=== PATIENT | female | born 1960 | race Caucasian/White ===

== ENCOUNTER 2021-11-19 11:58 | Emergency (ER) | payer BC, SELFPAY ==
[2021-11-19 12:01] VITALS: BP 178/101; PULSE 78; RESP 20; TEMP 36.3; O2SAT 100
[2021-11-19 14:00] VITALS: BP 189/131; PULSE 81; RESP 18; TEMP 37.2; O2SAT 99
== END 2021-11-19 17:22 | disposition left against medical advice (07) ==
LOC: ANHED 12:09
PROVIDERS: PCP Physician Assistant
DX: R53.1 Weakness (principal)
CPT/HCPCS: 99199

== ENCOUNTER 2021-11-27 09:54 | Outpatient (CLI) | payer BC, SELFPAY ==
--- NOTE | ~2021-11-27 | CT_ITS ---
EXAMINATION: CT brain wo con DATE: 11/27/2021 10:18 INDICATION: Cerebral infarction presenting with right-sided weakness and numbness, dizziness and lack of coordination TECHNIQUE: Computed tomography (CT) of the head was performed without intravenous contrast. Sagittal and coronal reconstructions were performed. The mA was adjusted according to patient size. Iterative reconstruction technique was employed. The dose-length product was 605.33 mGy-cm. COMPARISON: None FINDINGS: No acute intracranial hemorrhage, acute infarction or abnormal extra axial fluid collection. There is mild scattered white matter hypoattenuation consistent with chronic small vessel ischemic disease. V entricles are normal and symmetric. No mass/mass effect. The orbits, paranasal sinuses and mastoid ai r cells are normal. IMPRESSION: 1. Mild scattered white matter hypoattenuation consistent with chronic small vessel ischemic disease. No acute intracranial process. Reviewed, dictated and finalized at location A. [employer] IMPRESSION: 1. Mild scattered white matter hypoattenuation consistent with chronic small ve ssel ischemic disease. No acute intracranial process.
== END 2021-11-27 09:55 | disposition home or self-care (01) ==
LOC: ANHIMG 09:58
PROVIDERS: PCP Physician Assistant; Visit Provider Physician Assistant
DX: I63.9 Cerebral infarction, unspecified (principal)
CPT/HCPCS: 70450

== ENCOUNTER 2021-11-29 12:10 | Outpatient (CLI) | payer BC, SELFPAY ==
--- NOTE | 2021-11-29 12:17 | ECG_ITS ---
Measurements Intervals [place] Rate: 69 P: 50 DE: 174 QRS: 17 QRSD: 115 T: 70 QT: 406 QTc: 436 Interpretive Statements SINUS RHYTHM INCOMPLETE RIGHT BUNDLE BRANCH BLOCK BORDERLINE ST-T WAVE ABNORMALITY- HIGH LATERAL LEADS BASELINE ARTIFACT- I, III BORDERLINE ECG Electronically Signed On 11-29-2021 12:47:53 TOW TRUCK DISPATCHER by Josh Damon D.O.
== END 2021-11-29 12:11 | disposition home or self-care (01) ==
PROVIDERS: PCP Physician Assistant; Visit Provider Physician Assistant
DX: I10 Essential (primary) hypertension (principal); I45.10 Unspecified right bundle-branch block
CPT/HCPCS: 93005

== ENCOUNTER 2021-12-09 15:16 | Outpatient (CLI) | payer BC, SELFPAY ==
--- NOTE | ~2021-12-09 | MR_ITS ---
EXAMINATION: MR brain/brain stem wo con DATE: 12/09/2021 16:10 INDICATION: Hemiplegia, unspecified affecting unspecified side. TECHNIQUE: Magnetic resonance imaging (MRI) of the brain and brainstem was performed without intraven ous contrast. Sequences included sagittal and axial T1-weighted FSE, axial diffusion-weighted FS EPI, axial T2*-weighted GRE, axial T2-weighted FLAIR Propeller, and axial T2-weighted Propeller. Apparent diffusion coefficient (ADC) maps were created. COMPARISON: Head CT 11/27/2021 FINDINGS: There are scattered areas of nonspecific increased T2-weighted signal intensity in the cere bral white matter and mariel. There is no intracranial hemorrhage, acute infarction, or abnormal intrac ranial mass lesion. The ventricles are normal in size. There is mild mucosal thickening in the parana cain sinuses. The orbits are normal. The mastoid air cells are normal. IMPRESSION: 1. Mild nonspecific cerebral white matter disease and pontine disease, which likely represents chroni c small vessel ischemic disease. Reviewed, dictated and finalized at location A. [employer] IMPRESSION: 1. Mild nonspecific cerebral white matter disease and pontine disease, which bob billy represents chronic small vessel ischemic disease.
== END 2021-12-09 15:17 | disposition home or self-care (01) ==
LOC: ANHIMG 15:20
PROVIDERS: PCP Physician Assistant; Visit Provider Physician Assistant
DX: G81.90 Hemiplegia, unspecified affecting unspecified side (principal); R90.82 White matter disease, unspecified
CPT/HCPCS: 70551

== ENCOUNTER 2022-06-18 12:17 | Outpatient (RCR) | payer BC, SELFPAY ==
[2022-06-18 13:02] VITALS: BP 140/76; PULSE 72; RESP 18; TEMP 36.6; O2SAT 99
[2022-06-18] MEDS: FAMOTIDINE 20 MG TABLET PO (13:06)
[2022-06-18] MEDS: diphenhydrAMINE HCl CAP 25 MG CAPSULE PO (13:06)
[2022-06-18] MEDS: ACETAMINOPHEN 325 MG TABLET 650 MG PO (13:07)
[2022-06-18] MEDS: BEBTELOVIMAB 175 MG/2 ML VIAL IV PUSH (13:26)
[2022-06-18 14:15] VITALS: BP 164/84; PULSE 68; O2SAT 98
== END 2022-06-18 16:00 ==
LOC: AMCINF 12:17
PROVIDERS: PCP Physician Assistant; Visit Provider Internal Medicine Hematology & Oncology
DX: U07.1 COVID-19 (principal)
CPT/HCPCS: A9270; M0222; Q0222

== ENCOUNTER 2025-02-06 15:10 | Outpatient (CLI) | payer MEDICARE, SELFPAY ==
--- NOTE | ~2025-02-06 | XR_ITS ---
EXAMINATION: XR femur LT min 2V DATE: 02/06/2025 15:39 INDICATION: Left lower limb pain TECHNIQUE: Overlapping proximal and distal, AP and lateral views of the left femur were obtained. COMPARISON: None FINDINGS: Alignment is normal. No fracture. Mild osteoarthritis at the left hip. There is at least mild osteoa rthritis in the medial compartment of the left knee although severity of joint space narrowing can be underestimated on nonweightbearing imaging. No knee joint effusion. Soft tissues are unremarkable. IMPRESSION: 1. Mild osteoarthritis at the left hip and at the medial compartment of the left knee. Reviewed, dictated and finalized at location B. IMPRESSION: 1. Mild osteoarthritis at the left hip and at the medial compartment of the lef t knee.
--- NOTE | ~2025-02-06 | XR_ITS ---
XR hip LT min 2V Ordering provider: Jono Feldman DO History: . M25.559 - PAIN FOR 3-4 MONTHS, NKI . Comparison: None. FINDINGS: BONES: No acute fracture or dislocation. HIP JOINT SPACES: Severe narrowing of the joint space in the left hip. PUBIC SYMPHYSIS: Normal. SOFT TISSUES: Normal. IMPRESSION: No acute osseous abnormality pelvis and left hip. Severe left hip osteoarthritic changes. Reviewed, dictated and finalized at location A.
--- OUTSIDE RECORDS SUMMARY | 2025-02-06 17:39 | XMS_ITS | Clinical Summary ---
Author Organization [facility] Address [address] [place] [address] Care Team Providers Care Tamale Machine Feeder Name Role Phone Kirt Molina MD Primary Care Provider [phone] Allergies No known active allergies Medications HYDROcodone-acet aminophen (NORCO) 5-325 MG tabletIndication s:Acute Pain < 3 Day Supply Take 1 tablet by mouth every 4 (four) hours. Indications : Acute Pain < 3 Day Supply 12 tablet 09/10/2022 Active Social History Tobacco Use Types Packs/Day Years Used Date Smoking Tobacco: Never Smokeless Tobacco: Never Alcohol Use Standard Drinks/Week Comments Never 0 (1 standard drink = 0.6 oz pur e alcohol) Comments No Sex and Gender Information Value Date Recorded Sex Assigned at Not on file Legal Sex Female 11:34 AM CDT Gender Identity Not on file Sexual Orientation Not on file Last Filed Vital Signs Vital Sign Reading Time Taken Comments Blood Pressure 181/100 09/10/2022 3:31 PM CDT Pulse 90 09/10/2022 11:49 AM CDT Temperature 36.7 C (98 F) 09/10/2022 11:49 AM CDT Respiratory Rate 20 09/10/2022 11:4 9 AM CDT Oxygen Saturation 98% 09/10/2022 3:31 PM CDT Inhaled Oxygen Concentration - - Weight 121.9 kg (268 lb 11.9 oz) 2021 11:49 AM CDT Height 157.5 cm (5' 2 ) 09/10/2022 11:4 9 AM CDT Body Mass Index 49.15 09/10/2022 11:49 AM CDT Plan of Treatment Health Maintenance Due Date Last Done Comments Colorectal Cancer Screening Colonoscopy (10 Years) 1958 Hepatitis C 1976 DTaP, Tdap and Td Vaccines ( 1 - Tdap) 1977 Mammogram Screening 1998 Zoster Vaccines (1 of 2) 2008 RSV Immunization or 60+ Years (1 - Risk 60-74 years 1-dose series) 2018 Dexa Scan (General) 2023 Pneumococcal Vaccine: 65+ Years (1 of 1 - PCV) 2023 COVID-19 Vaccine (3 - 2023-2 5 season) 2024 07/12/2021, 06/21/2021 Influenza Adult (#1) 2024 Meningococcal B Vaccine Aged Out No l onger eligible based on patient's age to complete this topic Meningococcal Vaccine Aged Out No chloe sera eligible based on patient's age to complete this topic RSV Immunizations Under 20 Months Aged Out No longer eligible b ased on patient's age to complete this topic [place] [address] [place] [address] Care Teams Tamale Machine Feeder Relationship Specialty Start Date End Date Kirt Molina MD [address] [place] [address] PCP - General INTERNAL MEDICINE 09/10/22
== END 2025-02-06 15:11 | disposition home or self-care (01) ==
PROVIDERS: PCP Internal Medicine; Visit Provider Internal Medicine
DX: M17.12 Unilateral primary osteoarthritis, left knee (principal); M16.12 Unilateral primary osteoarthritis, left hip
CPT/HCPCS: 73502; 73552

== ENCOUNTER 2025-06-27 14:21 | Outpatient (CLI) | payer MEDICARE, SELFPAY ==
--- NOTE | ~2025-06-27 | US_ITS ---
EXAMINATION: US pelvic complete INDICATION: Pelvic and perineal pain Comparison:No prior studies for comparison. TECHNIQUE: Multiple transabdominal and endovaginal sonographic images of the pelvis performed. FINDINGS: The uterus is surgically absent. There is fluid anterior to the bladder within the left sku ll shape measuring 6.8 x 0.6 x 1.6 cm, nonspecific. The right ovary measures 1.9 x 0.7 x 1.3 cm and the left ovary measures 1.7 x 0.8 x 0.8 cm. There ar e small follicles in each ovary. Normal doppler signal in both ovaries. There is no free fluid in the pelvis. There are no abnormal masses seen on either side. IMPRESSION: 1. Elliptical fluid collection anterior to the bladder in the deep soft tissues measuring 6.8 x 0.6 x 1.6 cm, nonspecific. Posttraumatic, although infection is not excluded. Consider correlation with co ntrast-enhanced CT pelvis. Reviewed, dictated and finalized at location A. IMPRESSION: 1. Elliptical fluid collection anterior to the bladder in the deep soft tissues measuring 6.8 x 0.6 x 1.6 cm, nonspecific. Posttraumatic, although infection i s not excluded. Consider correlation with contrast-enhanced CT pelvis.
--- OUTSIDE RECORDS SUMMARY | 2025-06-27 14:47 | XMS_ITS | Patient Health Record ---
Author Organization [facility] Address [address] [facility] [address] [place] [address] Care Team Providers Care Bull Ladle Tender Name Role Phone JAYANT DAVENPORT Unavailable [phone] Reason For Referral No Information Plan Of Treatment No Information Insurance Providers Payer Name Payer Address Payer Phone Subscriber Number Group Number Insured Name Patient Relationship to Insured Coverage Start Date Coverage End Date [facility] [address] [place], [place] [id number] Sayra Bojorquez Self - patient is the insured 3
== END 2025-06-27 14:22 | disposition home or self-care (01) ==
PROVIDERS: PCP Internal Medicine; Visit Provider Internal Medicine
DX: R10.2 Pelvic and perineal pain (principal)
CPT/HCPCS: 76856

== ENCOUNTER 2025-06-27 15:28 | Emergency (ER) | payer MEDICARE, SELFPAY ==
--- NOTE | ~2025-06-27 | XR_ITS ---
CHEST RADIOGRAPH, PA AND LATERAL CLINICAL HISTORY: dizziness . COMPARISON: None available TECHNIQUE: PA and lateral views of the chest. FINDINGS The cardiomediastinal silhouette is markedly enlarged, specifically demonstrating left atrial enlarge ment. The lungs are clear. IMPRESSION: Significant cardiomegaly, without focal infiltrate or effusion. Reviewed, dictated and finalized at location A.
--- NOTE | ~2025-06-27 | CT_ITS ---
History: Vertigo PROCEDURE: CT head without contrast. COMPARISON: 11/27/2021 TECHNIQUE: Axial imaging of the head performed from the skull base to the vertex without IV contrast. Sagittal a nd coronal reformations obtained. DLP: 605 mGy-cm FINDINGS: The ventricles are enlarged. The dilatation of the ventricles is proportional to the degree of sulcal prominence, not uncommon in the senescent brain. Decreased attenuation is identified within the periventricular white matter, likely secondary to micr ovascular ischemic disease, in a patient of this age. There is no mass, mass effect or midline shift. There is no abnormal extra-axial fluid collection or intracranial hemorrhage. Visualized paranasal sinuses are clear. The mastoid air cells are well aerated. No acute displaced fractures within the overlying cranium. Impression: No acute intracranial hemorrhage or suspicious mass effect. Reviewed, dictated and finalized at location A. Impression: No acute intracranial hemorrhage or suspicious mass effect.
[2025-06-27 15:29] VITALS: BP 190/87; PULSE 100; RESP 16; TEMP 37; O2SAT 98
--- OUTSIDE RECORDS SUMMARY | 2025-06-27 15:41 | XMS_ITS | Clinical Summary ---
Author Organization [facility] Address [address] [place] [address] Care Team Providers Care Tube Making Machine Operator Name Role Phone Kirt Molina MD Primary Care Provider [phone] Allergies No known active allergies Medications HYDROcodone-acet [...] 11:49 AM CDT Height 157.5 cm (5' 2) 09/10/2022 11:4 9 AM CDT Body Mass Index 49.15 09/10/2022 11:49 AM CDT Plan of Treatment Health Maintenance Due Date Last Done Comments Colorectal Cancer Screening Colonoscopy (10 Years) 1958 Hepatitis C 1976 DTaP, Tdap and Td Vaccines ( 1 - Tdap) 1977 Mammogram Screening 1998 Pneumococcal Vaccine: 50+ Years (1 of 1 - PCV) 2008 Zoster Vaccines (1 of 2) 2008 RSV Immunization or 60+ Years (1 - Risk 60-74 years 1-dose series) 2018 Dexa Scan (General) 2023 COVID-19 Vaccine (3 - 2023-2 5 season) 2024 07/12/2021, 06/21/2021 Meningococcal B Vaccine Aged Out No l onger eligible based on patient's age to complete this topic Meningococcal Vaccine Aged Out No chloe sera eligible based on patient's age to complete this topic RSV Immunizations Under 20 Months Aged Out No longer eligible b ased on patient's age to complete this topic [place] [address] Care Teams Tube Making Machine Operator Relationship Specialty Start Date End Date Kirt Molina MD [address] [place], [place] [id number] PCP - General INTERNAL MEDICINE 09/10/22
[2025-06-27 18:22] VITALS: BP 192/89; PULSE 69; TEMP 36.3; O2SAT 98
--- NOTE | 2025-06-27 18:23 | ED_ITS ---
HPI - Recheck/Abnormal Lab/Rx General Chief Complaint: Recheck/Abnormal Lab/Rx <Daria Cintron PA-C - Last Filed: 06/29/25 17:19> Stated Complaint: Dizzy, HTN <Daria Cintron PA-C - Last Filed: 06/29/25 17:19> Time Seen by Provider: 06/27/25 18:23 <Daria Cintron PA-C - Last Filed: 06/29/25 17:19> Focused HPI: This is a 65 year old female that presents to the ER for dizziness. Ongoing since this morning. Reports she was in radiology here for an US and her blood pressure was noted to be quite elevated. Sent to the ER for further evaluation. Reports known history of hypertension. She did take her blood pressure medication today. GENERAL: Well-appearing, well-nourished, and in no acute distress. HEAD: Normocephalic, atraumatic. CHEST: Clear to auscultation. ?No respiratory distress. HEART: Regular rate and rhythm.? NEURO: ?Alert and oriented x3. Patient screened in triage and initial orders placed.? ?Additional care and disposition to be based upon?diagnostic testing and treatment. <Daria Cintron PA-C - Last Filed: 06/29/25 17:19> History of Present Illness HPI narrative: 65-year-old female present to the emergency department for evaluation for high blood pressure and dizziness. Patient states this morning when she bent over to feed her dogs she had onset of dizziness. Patient describes this as a movement and swimming sensation. Patient states it was tolerable until she went to have her outpatient ultrasound and when she laid down the table it symptoms significantly worsened. Patient does have history of high blood pressure that is poorly controlled. Patient states her pressure typically runs in the 160s systolic range but she states that is not uncommon for her to have a blood pressure of 200 systolic. Patient is having close follow-up with her primary care physician to trying get her blood pressure controlled. Patient did take her morning blood pressure medications at approximately noon which is her typical time. Patient takes her nighttime medications at 11:00 p.m.. At time of evaluation patient does describe a spinning sensation that is improved with closing her eyes. Patient denies any focal numbness or weakness. <Marcell Guy MD - Last Filed: 06/27/25 21:33> Related Data Home Medications: Home Medications ?Medication ?Instructions ?Recorded ?Confirmed ?Last Taken ?Type ascorbic acid (vitamin C) 500 mg 1 gm PO DAILY 04/11/20 06/29/25 Unknown History tablet (Vitamin C) cholecalciferol (vitamin D3) 125 125 mcg PO DAILY 04/11/20 06/29/25 Unknown History mcg (5,000 unit) capsule docosahexaenoic acid 200 mg 200 mg PO .qd 04/11/20 06/29/25 Unknown History capsule (Algal [place]-3 DHA) naproxen sodium 220 mg capsule 220 mg PO Q12H 04/11/20 06/29/25 Unknown History (Aleve) vitamin E (dl, acetate) 450 mg 1,200 unit PO DAILY 04/11/20 06/29/25 Unknown History (1,000 unit) capsule <Daria Cintron PA-C - Last Filed: 06/29/25 17:19> Allergies/Adverse Reactions: Allergies Allergy/AdvReac Type Severity Reaction Status Date / Time aspartame Allergy Mild Unknown Verified 06/29/25 12:22 avocado Allergy Mild Unknown Verified 06/29/25 12:22 blueberry Allergy Mild Unknown Verified 06/29/25 12:22 carrot Allergy Mild Unknown Verified 06/29/25 12:22 cucumber Allergy Mild Unknown Verified 06/29/25 12:22 lemon Allergy Mild Unknown Verified 06/29/25 12:22 milk Allergy Mild Unknown Verified 06/29/25 12:22 oats Allergy Mild Unknown Verified 06/29/25 12:22 orange Allergy Mild Unknown Verified 06/29/25 12:22 peas Allergy Mild Unknown Verified 06/29/25 12:22 petrolatum,white (From Allergy Mild boils Verified 06/29/25 12:22 Petroleum Jelly) safflower oil Allergy Mild Unknown Verified 06/29/25 12:22 salmon oil Allergy Mild Unknown Verified 06/29/25 12:22 strawberry Allergy Mild Unknown Verified 06/29/25 12:22 Yeast Allergy Mild Unknown Verified 06/29/25 12:22 rand oneil Allergy Mild Unknown Uncoded 06/29/25 12:22 MULTIPLE FOOD ALLERGIESX 15 Allergy Unknown unknown Uncoded 06/29/25 12:22 <Daria Cintron PA-C - Last Filed: 06/29/25 17:19> Review of Systems 2 Review of Systems: All systems reviewed & are unremarkable except as noted in HPI and below <Marcell Guy MD - Last Filed: 06/27/25 21:33> PMFSH Past Medical History Medical History: Medical History (Reviewed 05/23/25 @ 13:57 by Michelle Alcaraz [facility]) Broken ankle (~1984) <Daria Cintron PA-C - Last Filed: 06/29/25 17:19> Surgical History Surgical History: Surgical History (Reviewed 05/23/25 @ 13:57 by Michelle Alcaraz [facility]) H/O: hysterectomy (~1994) <Daria Cintron PA-C - Last Filed: 06/29/25 17:19> Family History Family History: Family History (Reviewed 05/23/25 @ 13:56 by Michelle Alcaraz [facility]) Father Hypertension Gout Mother Lung cancer Sibling No problems noted. <Daria Cintron PA-C - Last Filed: 06/29/25 17:19> Social History Social History: Social History (Reviewed 05/23/25 @ 13:56 by Michelle Alcaraz [facility]) Smoking status: Never smoker Second hand tobacco smoke exposure: No Alcohol intake: current Substance use: current Substance use type: other Other substance usage details: THC gummies Do You Feel Safe in your Home?: Yes Lack of Transportation: No Lack of Food: Never True Current Housing: I Have Housing Concerned About Future Housing: No Difficulty Paying Gas/Electric Bills: No Difficulty Paying for Meds: YES Currently Unemployed: No Education: Bachelor's Degree Difficulty w/ Childcare or Family Care: No Living arrangements: alone Occupation/Education: occupation Additional occupation/education comments: [employer] <Daria Cintron PA-C - Last Filed: 06/29/25 17:19> Exam 2 Narrative: APPEARANCE: Well appearing, no pain, no distress, well-nourished. HEAD: normocephalic, atraumatic. EYES: PERRLA/EOMI, conjunctivae clear. NOSE: Normal no drainage EARS:TMS clear with good light reflex. THROAT: Pharynx clear, no exudate. NECK: Supple. No adenopathy, no masses. RESPIRATORY: Airway patent, respirations nonlabored. Clear to auscultation bilaterally, no rales, rhonchi, wheezing. CARDIOVASCULAR: Regular rate and rhythm without murmurs rubs or gallops. ABDOMINAL: Soft, nontender, nondistended, normal bowel sounds MUSCULOSKELETAL: Moves all extremities. Strength/ROM intact, No edema, No calf tenderness. NEURO: Alert. Cranial nerves II through XII intact. Good gait. Good coordination SKIN: Warm, dry. Normal Color <Marcell Guy MD - Last Filed: 06/27/25 21:33> Course Vital Signs Vital signs: Vital Signs Temperature 98.6 F 06/27/25 15:29 Pulse Rate 100 06/27/25 15:29 Respiratory Rate 16 06/27/25 15:29 Blood Pressure 190/87 H 06/27/25 15:29 Pulse Oximetry 98 06/27/25 15:29 Temperature 97.3 F L 06/27/25 18:22 Pulse Rate 79 06/27/25 20:09 Respiratory Rate 18 06/27/25 20:09 Blood Pressure 143/69 H 06/27/25 20:09 Pulse Oximetry 100 06/27/25 20:09 <Daria Cintron PA-C - Last Filed: 06/29/25 17:19> Vital Signs Temperature 98.6 F 06/27/25 15:29 Pulse Rate 100 06/27/25 15:29 Respiratory Rate 16 06/27/25 15:29 Blood Pressure 190/87 H 06/27/25 15:29 Pulse Oximetry 98 06/27/25 15:29 Temperature 97.3 F L 06/27/25 18:22 Pulse Rate 79 06/27/25 20:09 Respiratory Rate 18 06/27/25 20:09 Blood Pressure 143/69 H 06/27/25 20:09 Pulse Oximetry 100 06/27/25 20:09 <Marcell Guy MD - Last Filed: 06/27/25 21:33> MDM - Recheck/Abnormal Lab/Rx MDM Narrative Medical decision making narrative: 65-year-old female presents to the emergency department for evaluation for vertigo. Patient's dizziness and vertigo does improve when she closed her eyes. Patient has a normal neuro exam. Patient was treated with meclizine and on re- evaluation patient states she does feel significantly improved. Patient reports her blood pressure typically does run in the 160s range and states she does often go to to 0s. Patient was treated with 10 mg of hydralazine and patient's blood pressure is 165. Head CT was negative for acute intracranial abnormality. Chest x-ray shows no acute cardiopulmonary abnormality EKG shows no evidence of acute STEMI. Patient does prefer to be discharged home. Patient will be provided meclizine for home. All questions concerns were addressed. <Marcell Guy MD - Last Filed: 06/27/25 21:33> Differential Diagnosis Differential diagnosis: Likely other (Hypertension, hypertensive crisis, subdural hematoma, subarachnoid hemorrhage, vertigo) <Marcell Guy MD - Last Filed: 06/27/25 21:33> Lab Data Attestation: I reviewed the patient's lab results. <Marcell Guy MD - Last Filed: 06/27/25 21:33> Result diagrams: 06/27/25 19:16 06/27/25 19:16 <Daria Cintron PA-C - Last Filed: 06/29/25 17:19> Labs: Lab Results 06/27/25 06/27/25 Range/Units 19:04 19:16 WBC 4.7 (4.5-10.0) K/mm3 RBC 4.75 (4.2-5.4) M/mm3 Hgb 13.8 (12.0-15.0) g/dL Hct 41.5 (37.0-47.0) % MCV 87.4 (80-100) fl MCH 29.1 (26-34) pg MCHC 33.3 (32-36) g/dl RDW 13.1 (11.5-14.5) % Plt Count 193 (150-375) k/mm3 MPV 9.6 (7.4-10.4) fl Immature Gran % (Auto) 0.2 (0-0.5) % Neut % (Auto) 61.4 (45.5-73.1) % Lymph % (Auto) 25.1 (18.3-44.2) % [place] % (Auto) 9.5 H (2.6-8.5) % Eos % (Auto) 2.5 (0-4.4) % Baso % (Auto) 1.3 H (0.2-1.2) % Lymph # (Auto) 1.19 (0.9-3.2) K/mm3 [place] # (Auto) 0.5 (0.1-0.6) K/mm3 Eos # (Auto) 0.1 (0-0.3) K/mm3 Baso # (Auto) 0.1 (0.0-0.1) K/mm3 Abs Immat Gran (auto) 0.01 (0.00-0.031) K/mm3 Absolute Neuts (auto) 2.9 (1.3-6.7) K/mm3 Absolute Nucleated RBC 0.000 (0.0-0.012) K/mm3 Nucleated RBC % 0.0 (0.0-0.2) % Sodium 139 (137-145) mmol/L Potassium 3.8 (3.4-5.0) mmol/L Chloride 104 (98-107) mmol/L Carbon Dioxide 27 (22-30) mmol/L Anion Gap 8 (4-12) mmol/L BUN 16 (7-17) mg/dL Creatinine 0.71 (0.7-1.0) mg/dL Estim Creat Clear Calc 79 ml/min Estimated GFR > 60 (59 - ) Glucose 94 (65-110) mg/dL Calcium 9.6 (8.4-10.2) mg/dL Total Bilirubin 0.6 (0.2-1.3) mg/dL AST 30 (14-36) U/L ALT 22 (6-35) U/L Alkaline Phosphatase 69 (38-126) U/L Total Protein 7.7 (6.3-8.2) g/dL Albumin 4.5 (3.5-5.1) g/dL Urine Color Yellow (Yellow) Urine Appearance Clear (Clear) Urine pH 7.5 (5.0-9.0) Ur Specific [place] 1.005 (1.001-1.035) Urine Protein Negative (Negative) mg/dL Urine Glucose (UA) Negative (Negative) mg/dL Urine Ketones Negative (Negative) mg/dL Ur Blood (Man) Negative (Negative) Urine Nitrate Negative (Negative) Urine Bilirubin Negative (Negative) Urine Urobilinogen 0.2 (<2.0) mg/dL Leukocyte Esterase Rfl Negative (Negative) ASUNCION/UL <Daria Cintron PA-C - Last Filed: 06/29/25 17:19> Lab Results 06/27/25 06/27/25 Range/Units 19:04 19:16 WBC 4.7 (4.5-10.0) K/mm3 RBC 4.75 (4.2-5.4) M/mm3 Hgb 13.8 (12.0-15.0) g/dL Hct 41.5 (37.0-47.0) % MCV 87.4 (80-100) fl MCH 29.1 (26-34) pg MCHC 33.3 (32-36) g/dl RDW 13.1 (11.5-14.5) % Plt Count 193 (150-375) k/mm3 MPV 9.6 (7.4-10.4) fl Immature Gran % (Auto) 0.2 (0-0.5) % Neut % (Auto) 61.4 (45.5-73.1) % Lymph % (Auto) 25.1 (18.3-44.2) % [place] % (Auto) 9.5 H (2.6-8.5) % Eos % (Auto) 2.5 (0-4.4) % Baso % (Auto) 1.3 H (0.2-1.2) % Lymph # (Auto) 1.19 (0.9-3.2) K/mm3 [place] # (Auto) 0.5 (0.1-0.6) K/mm3 Eos # (Auto) 0.1 (0-0.3) K/mm3 Baso # (Auto) 0.1 (0.0-0.1) K/mm3 Abs Immat Gran (auto) 0.01 (0.00-0.031) K/mm3 Absolute Neuts (auto) 2.9 (1.3-6.7) K/mm3 Absolute Nucleated RBC 0.000 (0.0-0.012) K/mm3 Nucleated RBC % 0.0 (0.0-0.2) % Sodium 139 (137-145) mmol/L Potassium 3.8 (3.4-5.0) mmol/L Chloride 104 (98-107) mmol/L Carbon Dioxide 27 (22-30) mmol/L Anion Gap 8 (4-12) mmol/L BUN 16 (7-17) mg/dL Creatinine 0.71 (0.7-1.0) mg/dL Estim Creat Clear Calc 79 ml/min Estimated GFR > 60 (59 - ) Glucose 94 (65-110) mg/dL Calcium 9.6 (8.4-10.2) mg/dL Total Bilirubin 0.6 (0.2-1.3) mg/dL AST 30 (14-36) U/L ALT 22 (6-35) U/L Alkaline Phosphatase 69 (38-126) U/L Total Protein 7.7 (6.3-8.2) g/dL Albumin 4.5 (3.5-5.1) g/dL Urine Color Yellow (Yellow) Urine Appearance Clear (Clear) Urine pH 7.5 (5.0-9.0) Ur Specific [place] 1.005 (1.001-1.035) Urine Protein Negative (Negative) mg/dL Urine Glucose (UA) Negative (Negative) mg/dL Urine Ketones Negative (Negative) mg/dL Ur Blood (Man) Negative (Negative) Urine Nitrate Negative (Negative) Urine Bilirubin Negative (Negative) Urine Urobilinogen 0.2 (<2.0) mg/dL Leukocyte Esterase Rfl Negative (Negative) ASUNCION/UL <Marcell Guy MD - Last Filed: 06/27/25 21:33> Imaging Data Radiologist's impression: Impressions Chest X-Ray 06/27/25 19:11 IMPRESSION: Significant cardiomegaly, without focal infiltrate or effusion. Head CT 06/27/25 19:15 Impression: No acute intracranial hemorrhage or suspicious mass effect. <Marcell Guy MD - Last Filed: 06/27/25 21:33> Critical Care Time Critical Care Time Critical Care Time: No <Daria Cintron PA-C - Last Filed: 06/29/25 17:19> Discharge Plan Discharge Clinical Impression: Vertigo <Daria Cintron PA-C - Last Filed: 06/29/25 17:19> Patient Disposition: Home <Daria Cintron PA-C - Last Filed: 06/29/25 17:19> Condition: Stable <Daria Cintron PA-C - Last Filed: 06/29/25 17:19> Instructions: Antibiotic Form, Vertigo (DC) <Daria Cintron PA-C - Last Filed: 06/29/25 17:19> Additional Instructions: Meclizine as needed for vertigo control. Have close follow-up with your primary care physician regarding better control of your blood pressure. If you have any worsening symptoms please call or return to the emergency department. <Daria Cintron PA-C - Last Filed: 06/29/25 17:19> Patient Language: Sami <Daria Cintron PA-C - Last Filed: 06/29/25 17:19> Prescriptions: New meclizine 25 mg tablet 25 mg PO BID PRN (Reason: dizziness) 7 Days Qty: 14 0RF No Action Algal [place]-3 DHA 200 mg capsule 200 mg PO .qd ascorbic acid (vitamin C) [Vitamin C] 500 mg tablet 1 gm PO DAILY cholecalciferol (vitamin D3) 125 mcg (5,000 unit) capsule 125 mcg PO DAILY vitamin E (dl, acetate) 1,000 unit capsule 1,200 unit PO DAILY naproxen sodium [Aleve] 220 mg capsule 220 mg PO Q12H cetirizine-pseudoephedrine [Zyrtec-D] 5-120 mg tablet extended release 12 hr 1 tablet PO DAILY PRN (Reason: allergy symptoms) Qty: 30 1RF hydrochlorothiazide 25 mg tablet 25 mg PO DAILY Qty: 90 3RF labetalol 100 mg tablet See Rx Instructions .ROUTE .COMPLEX Qty: 180 3RF Dose Instruction: TAKE 1 TABLET BY MOUTH EVERY 12 HOURS Rx Instructions: TAKE 1 TABLET BY MOUTH EVERY 12 HOURS ezetimibe [Zetia] 10 mg tablet 10 mg PO DAILY Qty: 90 3RF <Daria Cintron PA-C - Last Filed: 06/29/25 17:19> Follow-up/Referrals: Jono Feldman DO [Primary Care Provider] - <Daria Cintron PA-C - Last Filed: 06/29/25 17:19>
--- NOTE | 2025-06-27 18:24 | ECG_ITS ---
Test Date: 2025-06-27 19:10:25 Measurements Intervals [place] Rate: 69 P: 28 FL: 181 QRS: -17 QRSD: 111 T: 75 QT: 426 QTc: 459 Interpretive Statements SINUS RHYTHM INTRAVENTRICULAR CONDUCTION DELAY DELAYED PRECORDIAL R/S TRANSITION LEFT VENTRICULAR HYPERTROPHY WITH ST-T CHANGE CONSIDER INFERIOR INFARCT, AGE INDETERMINATE BASELINE ARTIFACT- I, III, AVR, AVL, AVF ABNORMAL ECG No previous ECG available for comparison Electronically Signed On 06-27-2025 20:39:53 CDT by Josh Damon D.O.
[2025-06-27 19:14] LABS: Add Urine Microscopic? NO; Appearance Urine Clear (Clear); Glucose Urine UA Negative (Negative); Leukocyte Esterase Ur Negative LEU/UL (Negative); Nitrate Urine Negative (Negative); Specific Grav Ur 1.005 (1.001-1.035)
[2025-06-27 19:16] VITALS: BP 192/95; PULSE 63; RESP 18; O2SAT 99
--- OUTSIDE RECORDS SUMMARY | 2025-06-27 19:20 | XMS_ITS | Clinical Summary ---
Author Organization [facility] Address [address] [place] [address] Care Team Providers Care Elementary Math Tutor Name Role Phone Kirt Molina MD Primary Care Provider [phone] Allergies No known active allergies Medications HYDROcodone-acet [...] patient's age to complete this topic Insurance [place] [address] Care Teams Elementary Math Tutor Relationship Specialty Start Date End Date Kirt Molina MD [address] [place], [place] [id number] PCP - General INTERNAL MEDICINE 09/10/22
[2025-06-27 19:23] LABS: Hematocrit 41.5 % (37.0-47.0); Hemoglobin 13.8 g/dL (12.0-15.0); Immature Granulocyte Percent A 0.2 % (0-0.5); Lymphocytes Absolute Auto 1.19 K/mm3 (0.9-3.2); Mean Corpuscular HGB Conc 33.3 g/dl (32-36); Mean Corpuscular Hemoglobin 29.1 pg (26-34); Mean Corpuscular Volume 87.4 fl (80-100); Nucleated Red Blood Cells Absolute Auto 0.000 K/mm3 (0.0-0.012); Nucleated Red Blood Cells Perc 0.0 % (0.0-0.2); Platelet Count Result 193 k/mm3 (150-375); Red Blood Count 4.75 M/mm3 (4.2-5.4); White Blood Count 4.7 K/mm3 (4.5-10.0)
[2025-06-27] MEDS: MECLIZINE HCL 25 MG TABLET PO (19:30)
[2025-06-27] MEDS: ONDANSETRON INJ 4 MG/2 ML VIAL IV PUSH (19:32)
[2025-06-27 19:36] VITALS: RESP 18
[2025-06-27 19:37] LABS: Alanine Aminotransferase 22 U/L (6-35); Albumin Level 4.5 g/dL (3.5-5.1); Alkaline Phosphatase 69 U/L (38-126); Anion Gap 8 mmol/L (4-12); Aspartate Amino Transferase 30 U/L (14-36); Bilirubin,Total 0.6 mg/dL (0.2-1.3); Blood Urea Nitrogen 16 mg/dL (7-17); Calcium 9.6 mg/dL (8.4-10.2); Carbon Dioxide 27 mmol/L (22-30); Chloride 104 mmol/L (98-107); Estimated CRCL calculation 79 ml/min; Estimated Glomerular Filt Rate > 60; Glucose 94 mg/dL (65-110); Potassium 3.8 mmol/L (3.4-5.0); Sodium 139 mmol/L (137-145); Total Protein 7.7 g/dL (6.3-8.2)
[2025-06-27 20:09] VITALS: BP 143/69; PULSE 79; RESP 18; O2SAT 100
== END 2025-06-27 20:21 | disposition home or self-care (01) ==
PROVIDERS: Physician Assistant; Emergency Provider Emergency Medicine; PCP Internal Medicine
DX: R42 Dizziness and giddiness (principal); I10 Essential (primary) hypertension; Z79.899 Other long term (current) drug therapy; Z79.1 Long term (current) use of non-steroidal anti-inflammatories (NSAID)
CPT/HCPCS: 36415; 70450; 71046; 80053; 81003; 85025; 93005; 96374; 96375; 99284; A9270; J0360; J2405

== ENCOUNTER 2025-07-06 10:24 | Outpatient (CLI) | payer MEDICARE, SELFPAY ==
--- NOTE | ~2025-07-06 | CT_ITS ---
CT of the Pelvis: Indication: Fluid collection in the pelvis seen on recent ultrasound Technique: 2.5 mm axial scans were obtained through the pelvis following intravenous administration of 100 cc of Omnipaque 350. Dose reduction technique was used on this scan by utilizing automated exposure control and iterative reconstruction technique. The dose-length product (DLP) was 937.10 mGy-cm. COMPARISON: Ultrasound dated 06/27/2025 Findings: 6 mm nonobstructing stone noted at the visualized lower pole the left kidney. There are atherosclerotic calcifications of the aorta, mild in degree. Urinary bladder unremarkable. Status post total hysterectomy. No pelvic/adnexal mass seen. No ascites. There is sigmoid diverticulosis. No bowel obstruction evident. No pelvic or inguinal lymphadenopathy seen. No abnormal fluid collection seen in the pelvis. Impression: No abnormal fluid collection or ascites seen. 6 mm nonobstructing left lower pole renal stone. Reviewed, dictated and finalized at [facility]. Impression: No abnormal fluid collection or ascites seen. 6 mm nonobstructing left lower pole renal stone.
--- OUTSIDE RECORDS SUMMARY | 2025-07-06 11:08 | XMS_ITS | Clinical Summary ---
Author Organization [facility] Address [address] [place] [address] Care Team Providers Care Rotor Balancer Name Role Phone Kirt Molina MD Primary Care Provider [phone] Allergies No known active allergies Medications HYDROcodone-acet [...] patient's age to complete this topic [place] [address] [place] [address] Care Teams Rotor Balancer Relationship Specialty Start Date End Date Kirt Molina MD [address] [place], [place] [id number] PCP - General INTERNAL MEDICINE 09/10/22
--- OUTSIDE RECORDS SUMMARY | 2025-07-06 11:08 | XMS_ITS | Patient Health Record ---
Author Organization [facility] Address [address] [facility] [facility] [address] [place] [address] Care Team Providers Care Human Resources Manager Name Role Phone JAYANT DAVENPORT Unavailable [phone] Reason For Referral No Information Plan Of Treatment No Information Insurance Providers Payer Name Payer Address Payer Phone Subscriber Number Group Number Insured Name Patient Relationship to Insured Coverage Start Date Coverage End Date [facility] [id number] [place], [place] [id number] Bojorquez Self - patient is the insured 3
== END 2025-07-06 10:25 | disposition home or self-care (01) ==
PROVIDERS: PCP Internal Medicine; Visit Provider Internal Medicine
DX: R93.5 Abnormal findings on diagnostic imaging of other abdominal regions, including retroperitoneum (principal); N20.0 Calculus of kidney
CPT/HCPCS: 72193; Q9967